=== PATIENT | female | born 1965 | race Two or more races ===

== ENCOUNTER 2018-04-01 07:01 | Day surgery (SDC) | payer OTHER ==
[~2018-04-01] VITALS: Ht 170.2 cm; Wt 81.6 kg
== END 2018-04-02 06:29 | disposition home or self-care (01) ==
LOC: CIR.AMB 07:01 → O/R 09:36 → CIR.AMB 09:36 → OB/GYN 09:36 → O/R 11:16 → OB/GYN 11:16 → CIR.AMB 04-02 06:29 → OB/GYN 04-02 11:30
DX: N81.11 Cystocele, midline (principal); N39.3 Stress incontinence (female) (male); I10 Essential (primary) hypertension
CPT/HCPCS: 57240; 57288; C1771